=== PATIENT | female | born 1990 | race Caucasian/White ===

== ENCOUNTER → 2017-02-26 | Outpatient (CLI) | payer OTHER ==
[~2017-02-26] MED LIST: /CELE20CA PO; BENA25CA PO; IBUP200C PO; PERC7.5T12 PO; PERCOCET PO
== END ==
LOC: M LAB 12:50
PROVIDERS: ATTEND Obstetrics & Gynecology
DX: Z34.81 Encounter for supervision of other normal pregnancy, first trimester (principal); Z36 Encounter for antenatal screening of mother; Z3A.00 Weeks of gestation of pregnancy not specified

== ENCOUNTER → 2017-05-03 | Outpatient (CLI) | payer OTHER ==
--- NOTE | 2017-05-04 05:03 | REP ---
Clinical: Anatomical evaluation. Comparison: None . Findings: Examination demonstrates a single live intrauterine in transverse (head to maternal right) presentation. motion is identified by technologist. Placenta is noted right laterally and grade 0 without evidence for placenta previa or abruption. Amniotic fluid volume is normal. Cervix measures 4.2 cm in length and appears closed. No evidence for nuchal cord. Gestational age by current measurements 19 weeks 4 days with JALIL 09/23/2017 . FHR equals 144 beats per minute. BPD 4.5 cm 19 weeks 5 days HC 16.4 cm 19 weeks 1 day AC 14.5 cm 19 weeks 6 days FL 3.3 cm 20 weeks 3 days HL 3.0 cm 20 weeks 0 days HC/AC ratio 1.13 Estimated weight 325 grams ( 60th percentile). Anatomical assessment demonstrates normal structures including cranium, choroid plexus, cavum, cerebellum/posterior fossa, facial features, lungs, four-chamber heart/ventricular outflow tracts, diaphragm, stomach, cord insertion/three-vessel cord, kidneys/bladder, spine, and extremities. Echogenic focus within the left cardiac ventricle likely prominent chordae tendineae. Impression: Single live intrauterine in transverse lie. Anatomical assessment is essentially complete and normal (prominent chordae tendineae suggested). Signed by Jhony Austin MD 05/04/2017 04:56 A
== END ==
LOC: M SMT 09:46
PROVIDERS: ATTEND Advanced Practice Midwife
DX: Z36 Encounter for antenatal screening of mother (principal); Z3A.19 19 weeks gestation of pregnancy; O34.211 Maternal care for low transverse scar from previous cesarean delivery

== ENCOUNTER → 2017-07-02 | Outpatient (CLI) | payer OTHER ==
[~2017-07-02] MED LIST changes: +COLA100C5 PO; +MOTR200T44 PO; +OXYC1TAB23 PO; +PRENTAB9 PO; +TUMS500C PO
[2017-07-02 14:47] LABS: BASO % 0.2 % (0.0-1.0); EOS # 0.2 K/mm3 (0.0-0.50); EOS % 1.8 % (0.0-3.0); LARGE UNSTAINED CELL # 0.1 K/mm3 (0.0-0.4); LARGE UNSTAINED CELL % 0.8 % (0.0-4.0); LYMPH # 1.1 K/mm3 (1.5-6.5); LYMPH % 10.8 % (24.0-44.0); MEAN CORPUSCULAR HEMOGLOBIN 30.4 pg (27.0-33.0); MEAN CORPUSCULAR HGB CONC 34.7 g/dl (32.0-36.5); MEAN CORPUSCULAR VOLUME 87.7 fl (80.0-96.0); MONO # 0.4 K/mm3 (0.0-0.8); MONO % 3.6 % (0.0-5.0); NEUTROPHILS # 8.8 K/mm3 (1.8-7.7); NEUTROPHILS % 82.8 % (36.0-66.0); PLATELET COUNT, AUTOMATED 181 k/mm3 (150-450); RED CELL DISTRIBUTION WIDTH 12.7 % (11.5-14.5); WHITE BLOOD COUNT 10.6 K/mm3 (4.0-10.0)
== END ==
LOC: M SMT 10:07
PROVIDERS: ATTEND Advanced Practice Midwife
DX: Z36 Encounter for antenatal screening of mother (principal); Z3A.00 Weeks of gestation of pregnancy not specified

== ENCOUNTER → 2017-08-31 | Outpatient (REF) | payer OTHER | LOC: M LAB REF 17:04 | PROVIDERS: ATTEND Advanced Practice Midwife | DX: Z34.83 Encounter for supervision of other normal pregnancy, third trimester (principal) ==

== ENCOUNTER 2019-07-29 15:54 | Emergency (ER) | payer OTHER ==
[~2019-07-29] VITALS: Ht 162.6 cm; Wt 79.4 kg
[~2019-07-29 15:54] MED LIST changes: -/CELE20CA PO; +CELE1CAP4 PO; -PERCOCET PO
--- NOTE | 2019-07-29 17:40 | REP ---
Clinical: Shortness of breath . Comparison: None . Technique: PA and lateral. Findings: The mediastinum and cardiac silhouette are normal. The lung zimmerman are clear and without acute consolidation, effusion, or pneumothorax. The skeletal structures are intact and normal. Impression: 1. No acute cardiopulmonary process. Electronically Signed by Jhony Austin MD 07/29/2019 05:32 P
[2019-07-29] MEDS ORDERED: IPRATROPIUM 0.5MG/ALBUTEROL 2.5MG INH SOL UD 3ML (DUONEB)(J7620) NEB PRN (18:00)
[2019-07-29 18:19] LABS: BASO # 0.1 10^3/uL (0.0-0.2); BASO % 0.7 % (0.0-1.0); EOS # 0.2 10^3/uL (0.0-0.5); HEMATOCRIT 37.7 % (36.0-47.0); LYMPH # 1.8 10^3/uL (1.5-5.0); LYMPH % 21.8 % (24.0-44.0); MEAN CORPUSCULAR HEMOGLOBIN 28.8 pg (27.0-33.0); MEAN CORPUSCULAR HGB CONC 34.5 g/dl (32.0-36.5); MEAN CORPUSCULAR VOLUME 83.6 fl (80.0-96.0); MONO # 0.4 10^3/uL (0.0-0.8); MONO % 5.3 % (0.0-5.0); NEUTROPHILS # 5.8 10^3/uL (1.5-8.5); PLATELET COUNT, AUTOMATED 214 10^3/uL (150-450); RED BLOOD COUNT 4.51 10^6/uL (4.00-5.40); WHITE BLOOD COUNT 8.3 10^3/uL (4.0-10.0)
[2019-07-29 19:07] VITALS: BP 119/66
--- NOTE | 2019-07-29 19:40 | ECGEPIP ---
[facility] - ED Test Date: 2019-07-29 Pat Name: MARTINE CARROLL Department: Room: - Gender: Female Talent Agent: Alberto : 1990 Requested By: JESSEE Mckeon PA-C Order Number: [id number] Reading MD: Priya Wiley Measurements Intervals [place] Rate: 58 P: 7 MD: 170 QRS: 39 QRSD: 76 T: 29 QT: 391 QTc: 385 Interpretive Statements SINUS BRADYCARDIA DECREASED RATE 11/05/15 Electronically Signed on 07-29-2019 19:40:17 EDT by Priya Wiley
== END 2019-07-29 19:14 | disposition home or self-care (01) ==
LOC: M ED 15:54
DX: R06.02 Shortness of breath (principal); R00.1 Bradycardia, unspecified; Z83.2 Family history of diseases of the blood and blood-forming organs and certain disorders involving the immune mechanism

== ENCOUNTER → 2019-09-12 | Outpatient (REF) | payer OTHER, MEDICAID ==
[2019-09-12 13:33] LABS: APPEARANCE, URINE CLOUDY (CLEAR); BACTERIA, URINE AUTO 1+ (NEGATIVE); BILIRUBIN, URINE AUTO NEGATIVE (NEGATIVE); BLOOD, URINE BLOOD NEGATIVE (NEGATIVE); COLOR, URINE AMBER (YELLOW); GLUCOSE, URINE (UA) AUTO NEGATIVE (NEGATIVE); KETONE, URINE AUTO TRACE mg/dL (NEGATIVE); LEUKOCYTE ESTERASE, URINE AUTO NEGATIVE (NEGATIVE); MUCUS, URINE LARGE (NEGATIVE); NITRITE, URINE AUTO NEGATIVE (NEGATIVE); PROTEIN, URINE AUTO NEGATIVE (NEGATIVE); RBC, URINE AUTO 1 /HPF (0-3); SPECIFIC GRAVITY URINE AUTO 1.028 (1.002-1.035); SQUAMOUS EPITHELIAL CELL UR AU 12 /HPF (0-6); UROBILINOGEN, URINE AUTO 0.2 mg/dL (0.0-2.0); WBC, URINE AUTO 1 /HPF (0-3)
== END ==
LOC: M LAB REF 12:32
PROVIDERS: ATTEND Nurse Practitioner Family
DX: Z13.9 Encounter for screening, unspecified (principal)

== ENCOUNTER → 2019-09-12 | Outpatient (REF) | payer OTHER, MEDICAID ==
[2019-09-12 12:49] LABS: BASO # 0.1 10^3/uL (0.0-0.2); EOS # 0.3 10^3/uL (0.0-0.5); EOS % 3.3 % (0.0-3.0); HEMATOCRIT 40.2 % (36.0-47.0); HEMOGLOBIN 13.2 g/dl (12.0-15.5); LYMPH # 1.8 10^3/uL (1.5-5.0); LYMPH % 24.1 % (24.0-44.0); MEAN CORPUSCULAR HEMOGLOBIN 28.3 pg (27.0-33.0); MEAN CORPUSCULAR HGB CONC 32.8 g/dl (32.0-36.5); MEAN CORPUSCULAR VOLUME 86.3 fl (80.0-96.0); MONO # 0.4 10^3/uL (0.0-0.8); MONO % 5.6 % (0.0-5.0); NEUTROPHILS % 65.7 % (36.0-66.0); PLATELET COUNT, AUTOMATED 265 10^3/uL (150-450); RED BLOOD COUNT 4.66 10^6/uL (4.00-5.40); WHITE BLOOD COUNT 7.6 10^3/uL (4.0-10.0)
[2019-09-12 13:02] LABS: ALBUMIN 3.9 GM/DL (3.2-5.2); ALT/SGPT 15 U/L (12-78); BILIRUBIN,TOTAL 0.4 MG/DL (0.2-1.0); BLOOD UREA NITROGEN 8 MG/DL (7-18); CALCIUM LEVEL 8.7 MG/DL (8.5-10.1); CARBON DIOXIDE LEVEL 30 MEQ/L (21-32); CHLORIDE LEVEL 105 MEQ/L (98-107); CHOLESTEROL LEVEL 140 MG/DL (<200); CREATININE FOR GFR 0.72 MG/DL (0.55-1.30); FREE T4 0.87 NG/DL (0.76-1.46); GLOMERULAR FILTRATION RATE > 60.0 (>60); GLUCOSE, FASTING 85 MG/DL (70-100); HDL CHOLESTEROL 50 MG/DL (>40); LDL CHOLESTEROL 72 MG/DL (<100); NON-HDL-C 90 MG/DL; POTASSIUM SERUM 4.1 MEQ/L (3.5-5.1); SODIUM LEVEL 140 MEQ/L (136-145); TOTAL 25(OH) VITAMIN D 19.6 NG/ML (30.0-100.0); TOTAL PROTEIN 6.9 GM/DL (6.4-8.2); TRIGLYCERIDES LEVEL 92 MG/DL (<150)
== END ==
LOC: M LAB REF 12:13
PROVIDERS: ATTEND Nurse Practitioner Family
DX: Z13.9 Encounter for screening, unspecified (principal)

== ENCOUNTER → 2020-08-28 | Outpatient (CLI) | payer OTHER, MEDICAID ==
[2020-08-28 15:46] LABS: BASO % 0.3 % (0.0-1.0); EOS # 0.1 10^3/uL (0.0-0.5); EOS % 1.1 % (0.0-3.0); HEMATOCRIT 34.9 % (36.0-47.0); HEMOGLOBIN 11.5 g/dl (12.0-15.5); LYMPH # 1.1 10^3/uL (1.5-5.0); LYMPH % 11.7 % (24.0-44.0); MEAN CORPUSCULAR HEMOGLOBIN 28.7 pg (27.0-33.0); MONO # 0.4 10^3/uL (0.0-0.8); MONO % 3.7 % (0.0-5.0); NEUTROPHILS # 7.8 10^3/uL (1.5-8.5); NEUTROPHILS % 82.8 % (36.0-66.0); PLATELET COUNT, AUTOMATED 177 10^3/uL (150-450); RED BLOOD COUNT 4.01 10^6/uL (4.00-5.40); WHITE BLOOD COUNT 9.5 10^3/uL (4.0-10.0)
[2020-08-28 16:08] LABS: GLUCOSE CHALLENGE TEST 1 HOUR 108 MG/DL (LESS THAN 140)
[2020-08-28 17:03] LABS: HEPATITIS C VIRUS ABY INDEX 0.1 INDEX (<0.8); HIV 1&2 SCREEN CENTAUR NEGATIVE (NEGATIVE)
== END ==
LOC: M PLALAB 13:18
PROVIDERS: ATTEND Obstetrics & Gynecology
DX: Z34.90 Encounter for supervision of normal pregnancy, unspecified, unspecified trimester (principal); Z36.89 Encounter for other specified antenatal screening

== ENCOUNTER → 2020-09-10 | Outpatient (CLI) | payer OTHER ==
--- NOTE | 2020-09-10 14:19 | REP ---
INDICATION: ANATOMY COMPARISON: None. TECHNIQUE: Transabdominal obstetrical ultrasound with color Doppler evaluation. FINDINGS: Examination demonstrates a single live intrauterine in transverse (head to maternal right) presentation. motion is identified by technologist. Placenta is noted anterior and grade 1 without evidence for placenta previa or abruption. Amniotic fluid volume is normal. Cervix measures 3.8 cm in length and appears closed. No evidence for nuchal cord. Gestational age by LMP 19 weeks 4 days with JALIL 01/31/2021. Gestational age by current measurements 19 weeks 1 day with JALIL 02/03/2021. FHR equals 153 beats per minute. BPD: 4.1 cm 19 weeks 2 days HC: 16.2 cm 19 weeks 0 days AC: 13.5 cm 18 weeks 6 days FL: 3.1 cm 19 weeks 5 days HL: 3.0 cm 19 weeks 6 days HC/AC: 1.20 Estimated weight 280 grams (25thpercentile). Anatomical assessment demonstrates normal structures including cranium, choroid plexus, cavum, cerebellum/posterior fossa, facial features, lungs, diaphragm, stomach, cord insertion/three-vessel cord, kidneys/bladder, spine, and extremities. Limited evaluation of the four-chamber heart with echogenic focus in the left cardiac ventricle noted. Limited evaluation of the cardiac ventricular outflow tract. IMPRESSION: 1. Single live intrauterine demonstrating appropriate estimated weight and growth. 2. Echogenic focus within the left cardiac ventricle and limited evaluation of the cardiac ventricular outflow tract. Remainder of the anatomical assessment is complete. <Electronically signed by Jhony Austin > 09/10/20 [id number]
== END ==
LOC: M WHC 12:48
PROVIDERS: ATTEND Specialist
DX: Z34.83 Encounter for supervision of other normal pregnancy, third trimester (principal)

== ENCOUNTER → 2020-10-09 | Outpatient (REF) | payer OTHER | LOC: M PLALAB 13:43 | PROVIDERS: ATTEND Obstetrics & Gynecology | DX: Z34.92 Encounter for supervision of normal pregnancy, unspecified, second trimester (principal); Z3A.23 23 weeks gestation of pregnancy; Z53.9 Procedure and treatment not carried out, unspecified reason ==

== ENCOUNTER → 2020-10-15 | Outpatient (CLI) | payer OTHER ==
--- NOTE | 2020-10-15 11:26 | REP ---
INDICATION: F/U ANATOMY/HEART AND VOT'S COMPARISON: 09/10/2020 TECHNIQUE: Transabdominal obstetrical ultrasound with color Doppler evaluation. FINDINGS: Examination demonstrates a single live intrauterine in transverse presentation. motion is identified by technologist. Placenta is noted anterior and grade 0 without evidence for placenta previa or abruption. Amniotic fluid volume is normal. Cervix measures 3.1 cm in length and appears closed.. Gestational age by LMP 24 weeks 4 days with JALIL 01/31/2021. Gestational age by current measurements 24 weeks 1 day with JALIL 02/03/2021. FHR equals 142 beats per minute. Estimated weight 670 grams (24thpercentile). Anatomical assessment demonstrates echogenic focus within the left cardiac ventricle unchanged and consistent with prominent chordae tendineae. No focal anatomical abnormalities are otherwise noted. IMPRESSION: Single live intrauterine in transverse lie demonstrating appropriate estimated weight and growth. <Electronically signed by Jhony Austin > 10/15/20 1120
== END ==
LOC: M WHC 10:39
PROVIDERS: ATTEND Obstetrics & Gynecology
DX: Z34.82 Encounter for supervision of other normal pregnancy, second trimester (principal); Z3A.23 23 weeks gestation of pregnancy

== ENCOUNTER → 2020-11-11 | Outpatient (REF) | payer OTHER ==
[2020-11-11 15:07] LABS: HEMATOCRIT 32.2 % (36.0-47.0); HEMOGLOBIN 10.4 g/dl (12.0-15.5); MEAN CORPUSCULAR HEMOGLOBIN 28.4 pg (27.0-33.0); MEAN CORPUSCULAR HGB CONC 32.3 g/dl (32.0-36.5); PLATELET COUNT, AUTOMATED 177 10^3/uL (150-450); RED BLOOD COUNT 3.66 10^6/uL (4.00-5.40); WHITE BLOOD COUNT 9.7 10^3/uL (4.0-10.0)
== END ==
LOC: M PLALAB 12:20
PROVIDERS: ATTEND Obstetrics & Gynecology
DX: Z3A.23 23 weeks gestation of pregnancy (principal); Z34.82 Encounter for supervision of other normal pregnancy, second trimester

== ENCOUNTER → 2021-01-01 | Outpatient (REF) | payer OTHER | LOC: M SFHCWAGY 12:43 | PROVIDERS: ATTEND Advanced Practice Midwife | DX: Z3A.35 35 weeks gestation of pregnancy (principal) ==

== ENCOUNTER → 2021-01-19 | Outpatient (CLI) | payer OTHER, MEDICAID ==
[~2021-01-19] MED LIST changes: +IRON65TA2 PO; +MULTTAB20 PO
== END ==
LOC: M LABSMTC 08:34
PROVIDERS: ATTEND Anesthesiology
DX: Z01.812 Encounter for preprocedural laboratory examination (principal); Z20.822 Contact with and (suspected) exposure to COVID-19

== ENCOUNTER 2021-01-24 06:01 | Inpatient (IN) | payer OTHER ==
[2021-01-24] VITALS (8 sets, daily range): BP systolic 106–128; BP diastolic 57–87
[~2021-01-24] VITALS: Ht 162.6 cm; Wt 105.3 kg
[2021-01-24] MEDS ORDERED: ceFAZolin SOD 2 GM in IV 1 EA IV ONE (06:30)
[2021-01-24] MEDS ORDERED: LR 1,000 ML IV ONE (06:30)
[2021-01-24] MEDS ORDERED: BICITRA 30ML SOLN UDC PO ONE (06:30)
[2021-01-24 06:37] LABS: HEMATOCRIT 38.9 % (36.0-47.0); HEMOGLOBIN 13.1 g/dl (12.0-15.5); MEAN CORPUSCULAR HEMOGLOBIN 29.2 pg (27.0-33.0); MEAN CORPUSCULAR HGB CONC 33.7 g/dl (32.0-36.5); MEAN CORPUSCULAR VOLUME 86.8 fl (80.0-96.0); PLATELET COUNT, AUTOMATED 158 10^3/uL (150-450); RED BLOOD COUNT 4.48 10^6/uL (4.00-5.40); WHITE BLOOD COUNT 11.6 10^3/uL (4.0-10.0)
[2021-01-24] MEDS ORDERED: LR 1,000 ML IV SCH ×4 (07:30→09:12)
[2021-01-24] MEDS ORDERED: HYDROMORPHONE HCL 0.5 MG/ 0.5 ML SYRINGE (J1170 PER 1) IV PRN (07:40)
[2021-01-24] MEDS ORDERED: METOCLOPRAMIDE INJ 10MG/2ML VIAL (J2765 PER 1) IV PRN ×2 (07:40→08:40)
[2021-01-24] MEDS ORDERED: diphenhydrAMINE 50MG/ML VIAL (J1200) IV PRN (07:40)
[2021-01-24] MEDS ORDERED: PERCOCET 5MG/325MG TAB PO PRN ×3 (07:40→09:15)
[2021-01-24] MEDS ORDERED: fentaNYL 100 MCG/2 ML INJECTION (J3010) IV PRN ×2 (07:40→08:40)
[2021-01-24] MEDS ORDERED: NORCO, ANEXSIA 5/325MG TABLET (HYDROcodone/ACETAMINOPHEN) PO PRN (07:40)
[2021-01-24] MEDS ORDERED: PROMETHAZINE INJ 25 MG/ML VIAL (J2550) IV PRN (07:40)
[2021-01-24] MEDS ORDERED: NALBUPHINE HCL 10 MG/ML AMP (J2300) IV PRN (07:40)
[2021-01-24] MEDS ORDERED: oxyCODONE 5MG TAB PO PRN (07:40)
[2021-01-24] MEDS ORDERED: KETOROLAC 30 MG/ML 1ML VIAL IV PRN (07:40)
[2021-01-24] MEDS ORDERED: MORPHINE 2 MG/ML 1ML VIAL (J2270) IV PRN (07:40)
[2021-01-24] MEDS ORDERED: MEPERIDINE INJ 25 MG/ML VIAL (J2175) IV PRN (07:40)
[2021-01-24] MEDS ORDERED: ONDANSETRON 4MG/2ML VIAL IV PRN ×3 (07:40→09:15)
[2021-01-24] MEDS ORDERED: ONDANSETRON 4MG/2ML VIAL As Ordered ONE (07:41)
[2021-01-24] MEDS ORDERED: MORPHINE PRES-FREE INJ 10 MG/10 ML VIAL (J2274) As Ordered ONE (07:41)
[2021-01-24] MEDS ORDERED: KETOROLAC 60MG 2ML VIAL As Ordered ONE (07:54)
--- NOTE | 2021-01-24 08:34 | ROOPDOC ---
[facility] Report Of Operation Report of Operation DATE OF PROCEDURE: 01/24/21 Report of operation Preoperative diagnosis: 39 weeks, prior x 2 Postoperative diagnosis: same Procedure: Repeat low transverse section. Surgeon: Myrtle Nava M.D. Asst.: Shira Riggs CNM EBL: 500 ml. Urine output: 100 mL's. Findings: 7 lbs. 11 oz. female infant, Apgars 9 and 9 g normal uterus, fallopian tubes, ovaries. Operative summary: Patient taken to the operating room where spinal anesthesia was induced. She was prepped draped sterile fashion in the supine position. A Gudino catheter was placed. A Pfannenstiel skin incision was made with scalpel. Fascia was incised and extended bilaterally. The peritoneal cavity was entered. A Mobius retractor was placed. A bladder flap was created. A curvilinear incision was made in lower uterine segment until Clear fluid was noted. The incision was extended manually. The infant was delivered from the vertex position without difficulty. Cord was double clamped and cut. The infant was handed to awaiting nurses. . The placenta was expressed. Uterus was closed with O-Vicryl in a running locked fashion. A second imbricating layer of Vicryl was placed. Peritoneum was closed with 2-0 Vicryl a running fashion. Fascia was closed with 0 Vicryl in running fashion. Skin was closed 4-0 Monocryl subcuticular sutures. Sponge, instrument and needle counts were correct. Shira Riggs CNM, assisted with all aspects of the procedure. She helped each layer of the incision and deliver the fetus. MYRTLE NAVA MD Jan 24, 2021 08:34
[2021-01-24] MEDS ORDERED: OXYTOCIN DRIP 30 UNITS in IV 1 EA IV SCH (09:12)
[2021-01-24] MEDS ORDERED: RHOGAM 300 MCG (1500 IU) INJ (J2790) IM SCH (09:15)
[2021-01-24] MEDS ORDERED: SIMETHICONE 80MG CHEW TAB PO PRN (09:15)
[2021-01-24] MEDS ORDERED: MEASLES,MUMPS,RUBELLA VACCINE INJ (MMR-II) (90707) SC SCH (09:15)
[2021-01-24] MEDS ORDERED: OXYTOCIN 30 UNITS IN 0.9% NaCl 500ML IV BAG (J2590) As Ordered ONE (09:17)
[2021-01-24] MEDS: KETOROLAC 30 MG/ML 1ML VIAL IV SCH ×2 (14:54→20:39)
[2021-01-25 01:58] VITALS: BP 130/63
[2021-01-25] MEDS: KETOROLAC 30 MG/ML 1ML VIAL IV SCH (03:01)
[2021-01-25 06:00] VITALS: BP 136/66
[2021-01-25 07:23] LABS: HEMATOCRIT 32.8 % (36.0-47.0); MEAN CORPUSCULAR HEMOGLOBIN 28.8 pg (27.0-33.0); MEAN CORPUSCULAR VOLUME 89.9 fl (80.0-96.0); PLATELET COUNT, AUTOMATED 117 10^3/uL (150-450); RED BLOOD COUNT 3.65 10^6/uL (4.00-5.40); WHITE BLOOD COUNT 8.8 10^3/uL (4.0-10.0)
[2021-01-25 07:31] LABS: HEMOGLOBIN 10.5 g/dl (12.0-15.5)
--- NOTE | 2021-01-25 07:41 | IPNPDOC ---
Text Note Date of Service The patient was seen on 01/25/21. NOTE PO #1 Feels well. Adequate pain management. Voiding. Reports swollen itchy lips and nose and generalized itching VSS, afebrile, normotensive Lips and nose appear swollen and blistered. Fundus firm, NT Dressing dry, intact Lochia rubra light without odor PO #1 Routine care. Benadryl ordered for probable allergic reaction. POssibly to Nose to Toes? Anticipate D/C in am VS,Fishbone, I+O VS, Fishbone, I+O Laboratory Tests 01/25/21 06:42 Vital Signs Date Time Temp Pulse Resp B/P (MAP) Pulse Ox O2 Delivery O2 Flow Rate FiO2 01/25/21 06:00 99.1 102 16 136/66 (89) 97 Room Air 01/24/21 06:48 98 I&O- Last 24 Hours up to 6 AM 01/25/21 06:00 Intake Total 3600 ml Output Total 1175 ml Balance 2425 ml Trinidad Fritz CNM Jan 25, 2021 07:41
[2021-01-25] MEDS ORDERED: diphenhydrAMINE 25MG CAP PO PRN (07:45)
[2021-01-25] MEDS: PRENATAL VITAMINS CHEWABLE TABLET PO SCH (08:37)
[2021-01-25] MEDS: PERCOCET 5MG/325MG TAB PO PRN ×2 (08:37→16:26)
[2021-01-25 11:17] VITALS: BP 135/63
[2021-01-25] MEDS: IBUPROFEN 800 MG TAB PO SCH ×2 (12:02→18:31)
[2021-01-25 13:56] VITALS: BP 132/59
[2021-01-25] MEDS ORDERED: DOCUSATE SODIUM 100MG CAPSULE PO PRN (17:25)
[2021-01-25 18:00] VITALS: BP 126/79
[2021-01-25 22:00] VITALS: BP 127/71
[2021-01-26] MEDS: PERCOCET 5MG/325MG TAB PO PRN (01:51)
[2021-01-26 02:00] VITALS: BP 131/74
[2021-01-26] MEDS: IBUPROFEN 800 MG TAB PO SCH ×2 (02:46→10:55)
[2021-01-26 06:00] VITALS: BP 141/87
[2021-01-26] MEDS: PRENATAL VITAMINS CHEWABLE TABLET PO SCH (08:46)
[2021-01-26] MEDS ORDERED: IBUP80TA PO (09:41)
[2021-01-26] MEDS ORDERED: PERCOCET PO (09:41)
[2021-01-26 10:00] VITALS: BP 130/78
--- NOTE | 2021-01-27 06:46 | DS.PDOC ---
Discharge Summary General Date of Admission Jan 24, 2021 at 06:01 Date of Discharge 01/26/2021 Attending Physician: MYRTLE NAVA MD Discharge Summary PROCEDURES PERFORMED DURING STAY: 1. Spinal anesthesia 2. section. ADMITTING DIAGNOSES: 1. Intrauterine at 39 weeks for repeat section. DISCHARGE DIAGNOSES: 1. Repeat section. COMPLICATIONS/CHIEF COMPLAINT: Previous . HISTORY OF PRESENT ILLNESS: This patient presented at 39 weeks for scheduled section. Her history is significant for 2 prior sections. She underwent uncomplicated section liveborn infant Apgars were 9 and 9 blood loss is 500 mL. Patient did well postoperatively by postoperative day #2 had met all discharge criteria is as discharged home stable condition. DISCHARGE MEDICATIONS: Please see below. ALLERGIES: Please see below. PHYSICAL EXAMINATION ON DISCHARGE: VITAL SIGNS: Please see below. GENERAL: Well-appearing ABDOMINAL EXAMINATION: Soft. Incision was dressed. EXTREMITIES: Negative calf tenderness NEUROLOGICAL EXAMINATION: Grossly intact PSYCHIATRIC EXAMINATION: Appropriate ACTIVITY: As tolerated. DIET: Regular DISCHARGE PLAN: Home DISPOSITION: Home, Self-Care. DISCHARGE INSTRUCTIONS: 1. Follow-up in 2 weeks for incision check 2. Remove dressing in 5 days 3. Reports severe pain heavy vaginal bleeding fever or incisional issues. DISCHARGE CONDITION: Stable. Vital Signs/I&Os Vital Signs Date Time Temp Pulse Resp B/P (MAP) Pulse Ox O2 Delivery O2 Flow Rate FiO2 01/26/21 10:00 98.2 88 12 130/78 (95) 99 Room Air 01/24/21 06:48 98 Discharge Medications Scheduled Ferrous Sulfate (Iron) 325 Mg Tablet, 325 MG PO DAILY, (Reported) Ibuprofen (Ibuprofen) 800 Mg Tablet, 800 MG PO Q8H No122/Iron/Folic Acid ( Multi Tablet) 1 Each Tablet, 1 TAB PO DAILY, (Reported) Scheduled PRN Oxycodone/Acetaminophen (Oxycodone-Acetaminophen 5-325) 1 Each Tablet, 1-2 TAB PO Q6H PRN for MILD/MODERATE PAIN (PS 1-7) Allergies Coded Allergies: No Known Allergies (Verified , 07/30/12) MEENA TORREZ MD. Jan 27, 2021 06:46
== END 2021-01-26 13:15 | disposition home or self-care (01) | DRG 540 ==
LOC: EEVIPCON 06:01 → M LDI 06:01 → M OBS 10:05
PROVIDERS: ADMIT Specialist; ATTEND Specialist
PROC: 10D00Z1 Extraction of Products of Conception, Low, Open Approach (ICD-10-PCS; principal; 2021-01-24 07:30)
DX: O34.211 Maternal care for low transverse scar from previous cesarean delivery (principal); Z37.0 Single live birth; Z3A.39 39 weeks gestation of pregnancy

== ENCOUNTER → 2022-07-23 | Outpatient (REF) | payer OTHER ==
[~2022-07-23] MED LIST changes: +IBUP80TA PO; +PERCOCET PO
== END ==
LOC: M LAB REF 17:54
PROVIDERS: ATTEND Nurse Practitioner Family
DX: J02.9 Acute pharyngitis, unspecified (principal)

== ENCOUNTER → 2025-07-05 | Outpatient (REF) | payer OTHER | LOC: M SFHCWAGY 12:38 | PROVIDERS: ATTEND Advanced Practice Midwife | DX: Z34.91 Encounter for supervision of normal pregnancy, unspecified, first trimester (principal) ==

== ENCOUNTER → 2025-07-17 | Outpatient (CLI) | payer OTHER | LOC: M WHC 08:54 | PROVIDERS: ATTEND Specialist | DX: Z34.92 Encounter for supervision of normal pregnancy, unspecified, second trimester (principal); Z3A.20 20 weeks gestation of pregnancy ==

== ENCOUNTER → 2025-09-05 | Outpatient (CLI) | payer OTHER | LOC: M WHC 12:26 | PROVIDERS: ATTEND Nurse Practitioner Family | DX: Z34.82 Encounter for supervision of other normal pregnancy, second trimester (principal) ==

== ENCOUNTER → 2025-09-13 | Outpatient (CLI) | payer OTHER ==
[2025-09-13 13:52] LABS: PLATELET COUNT, AUTOMATED 195 10^3/uL (150-450)
[2025-09-13 14:05] LABS: Trichomonas vaginalis (AMP) NOT DETECTED (NEGATIVE)
[2025-09-13 14:24] LABS: GLUCOSE CHALLENGE TEST 1 HOUR 109 MG/DL (LESS THAN 140)
[2025-09-13 14:30] LABS: GC DNA AMPLIFICATION NEGATIVE (NEGATIVE)
[2025-09-13 15:00] LABS: HIV 1&2 SCREEN NEGATIVE (NEGATIVE)
[2025-09-13 15:07] LABS: HEPATITIS C VIRUS ABY INDEX < 0.02 INDEX (<0.8)
== END ==
LOC: M PLALAB 07:43
PROVIDERS: ATTEND Nurse Practitioner Family
DX: Z34.82 Encounter for supervision of other normal pregnancy, second trimester (principal)

== ENCOUNTER → 2025-11-06 | Outpatient (REF) | payer OTHER | LOC: M SFHCWAGY 13:32 | PROVIDERS: ATTEND Advanced Practice Midwife | DX: O34.211 Maternal care for low transverse scar from previous cesarean delivery (principal); Z3A.35 35 weeks gestation of pregnancy ==